=== PATIENT | female | born 1960 | race Caucasian/White ===

== ENCOUNTER 2021-09-27 07:20 | Day surgery (SDC) | payer BC ==
[2021-09-25 12:02] VITALS: BMI 16.5
[2021-09-27] MEDS ORDERED: PROPOFOL 20 ML ONE ×4 (07:49)
[2021-09-27] MEDS ORDERED: LIDOCAINE HCL/PF 2% SDV 5ML VIAL ONE (07:49)
[2021-09-27 08:53] VITALS: TEMP 97.8
[2021-09-27 09:03] VITALS: BP 98/60; PULSE 58
== END 2021-09-27 09:18 | disposition home or self-care (01) ==
LOC: FASU-ENDO 07:20
PROVIDERS: ATTEND Internal Medicine Gastroenterology
PROC: 0DJD8ZZ Inspection of Lower Intestinal Tract, Via Natural or Artificial Opening Endoscopic (ICD-10-PCS; principal; 2021-09-27 08:23)
DX: Z86.010 Personal history of colon polyps (principal)